=== PATIENT | female | born 1995 | race Caucasian/White ===

== ENCOUNTER 2020-10-17 10:48 | Emergency (ER) | payer OTHER, SELFPAY ==
[2020-10-17 10:51] VITALS: BP 119/73; PULSE 79; RESP 20; TEMP 36.4; O2SAT 100
--- NOTE | 2020-10-17 12:05 | ED.GENADULT ---
HPI - General Adult General Chief complaint: Unspecified <Haim Christopher PA-C - Last Filed: 10/17/20 12:09> Stated complaint: SORE THROAT <Haim Christopher PA-C - Last Filed: 10/17/20 12:09> Time Seen by Provider: 10/17/20 10:56 <Haim Christopher PA-C - Last Filed: 10/17/20 12:09> Source: patient <Haim Christopher PA-C - Last Filed: 10/17/20 12:09> Mode of arrival: ambulatory <Haim Christopher PA-C - Last Filed: 10/17/20 12:09> Limitations: no limitations <Haim Christopher PA-C - Last Filed: 10/17/20 12:09> History of Present Illness HPI narrative: Patient is a 25-year-old female who presents with over a month duration tonsillar hypertrophy and discomfort patient was seen at an urgent care treated for tonsillitis with minimal improvement patient denies other URI symptoms or sick contacts presents in no distress taking nothing for her symptoms worse with swallowing notes that she believes she has exudates on her tonsils as well <Haim Christopher PA-C - Last Filed: 10/17/20 12:09> Related Data Allergies/adverse reactions: Allergies Allergy/AdvReac Type Severity Reaction Status Date / Time No Known Allergies Allergy Verified 10/17/20 10:54 <Haim Christopher PA-C - Last Filed: 10/17/20 12:09> Review of Systems Review of Systems: All systems reviewed & are unremarkable except as noted in HPI and below <Haim Christopher PA-C - Last Filed: 10/17/20 12:09> [facility] Family History Family History: Family History (Updated 06/12/17 @ 14:15 by DOCTOR UNKNOWN) Mother Family history of thyroid disease, Onset Age: 41 Asthma, Onset Age: 41 Father Hypertension Patient's father is in good health <Haim Christopher PA-C - Last Filed: 10/17/20 12:09> Social History Social History: Social History Smoking status: Current every day smoker Alcohol intake: current Gender identity (if verbalized by the patient): Female <Haim Christopher PA-C - Last Filed: 10/17/20 12:09> Exam Narrative: Exam Narrative: GENERAL: Well-appearing, well-nourished, and in no acute distress. HEAD: Normocephalic, atraumatic. EYES: PERRLA and EOMI. ENT: Nares clear, no rhinorrhea or epistaxis. Mucous membranes moist. Oropharynx with tonsillar hypertrophy exudate or other lesions. Uvula midline no trismus or drooling NECK: Supple. No adenopathy or masses. CHEST: Clear to auscultation. No respiratory distress. No wheezes rales or rhonchi HEART: Regular rate and rhythm. No murmur heard. EXTREMITIES: Normal range of motion. No edema. SKIN: Warm, dry, no rash. NEURO: No focal deficits. Alert and oriented x3. Cranial nerves II through XII grossly intact PSYCH: Normal mood and affect. <CLOVIS Cooper Last Filed: 10/17/20 12:09> Course Course Emergency Course: Patient in the room negative strep will be referred to ENT given the chronicity of her symptoms patient will be treated symptomatically in the meantime afebrile nontoxic-appearing no distress felt appropriate for discharge home <CLOVIS Cooper Last Filed: 10/17/20 12:09> Vital Signs Vital signs: Vital Signs Temperature 97.5 F L 10/17/20 10:51 Pulse Rate 79 10/17/20 10:51 Respiratory Rate 20 10/17/20 10:51 Blood Pressure 119/73 10/17/20 10:51 Pulse Oximetry 100 10/17/20 10:51 Temperature 97.5 F L 10/17/20 10:51 Pulse Rate 79 10/17/20 10:51 Respiratory Rate 20 10/17/20 10:51 Blood Pressure 119/73 10/17/20 10:51 Pulse Oximetry 100 10/17/20 10:51 <CLOVIS Cooper Last Filed: 10/17/20 12:09> Vital Signs Temperature 97.5 F L 10/17/20 10:51 Pulse Rate 79 10/17/20 10:51 Respiratory Rate 20 10/17/20 10:51 Blood Pressure 119/73 10/17/20 10:51 Pulse Oximetry 100 12/19/20 10:51 Temperature 97.5 F L 10/17/20 10:51 Pulse Rate 79 10/17/20 10:51 Res
== END 2020-10-17 12:10 | disposition home or self-care (01) ==
PROVIDERS: Emergency Provider General Practice; PCP Internal Medicine
DX: J06.9 Acute upper respiratory infection, unspecified (principal)
CPT/HCPCS: 87880; 99283

== ENCOUNTER 2020-11-21 01:22 | Outpatient (CLI) | payer OTHER, SELFPAY ==
[2020-11-22 00:21] LABS: SARS-CoV-2 RNA PCR Negative
== END 2020-11-21 01:23 | disposition home or self-care (01) ==
LOC: ANHCOVIDDT 01:23
PROVIDERS: PCP Internal Medicine; Visit Provider Otolaryngology
DX: Z01.812 Encounter for preprocedural laboratory examination (principal); Z20.822 Contact with and (suspected) exposure to COVID-19
CPT/HCPCS: C9803; U0003; U0005

== ENCOUNTER 2020-11-24 01:05 | Day surgery (SDC) | payer OTHER, SELFPAY ==
[2020-11-18 09:54] VITALS: BMI 35.5
--- NOTE | 2020-11-19 09:56 | PM.HPGS ---
History of Present Illness History of Present Illness Consent: Risks, benefits, and alternatives have been discussed and questions answered. Patient agrees to proceed with procedure. Chief complaint: Hypertrophic Tonsils Narrative: Arpita Perez is a 25 year old female markedly enlarged tonsils recurring episodes of tonsillitis admitted for elective t Review of Systems Review of Systems: All systems reviewed & are unremarkable except as noted in HPI and below PMFSH Family History Family History (Updated 06/12/17 @ 14:15 by DOCTOR UNKNOWN) Mother Family history of thyroid disease, Onset Age: 41 Asthma, Onset Age: 41 Father Hypertension Patient's father is in good health Social History Social History Smoking status: Current every day smoker Tobacco type: cigarettes Additional smoking assessment comments: STATES SMOKES MAYBE 1 CIGARETTE/DAY X 5YRS Alcohol intake: current Drinks per week: 1 Substance use: never Substance use type: does not use Gender identity (if verbalized by the patient): Female Spiritual care concerns: No Meds Home Medications and Allergies Home Medications Medication Instructions Recorded Confirmed Type No Home Medications 11/18/20 11/18/20 History Allergies Allergy/AdvReac Type Severity Reaction Status Date / Time No Known Allergies Allergy Verified 11/18/20 09:54 Assessment and Plan Additional Plan plan is a tonsillectomy
--- NOTE | 2020-11-19 12:53 | PM.HPGS ---
History of Present Illness History of Present Illness Consent: Risks, benefits, and alternatives have been discussed and questions answered. Patient agrees to proceed with procedure. Chief complaint: Hypertrophic Tonsils Narrative: Arpita Perez is a 25 year old female with recurring episodes of tonsillitis treated vessels antibiotics unresponsive to medical m Review of Systems Review of Systems: All systems reviewed & are unremarkable except as noted in HPI and below PMFSH Family History Family History (Updated 06/12/17 @ 14:15 by DOCTOR UNKNOWN) Mother Family history of thyroid disease, Onset Age: 41 Asthma, Onset Age: 41 Father Hypertension Patient's father is in good health Social History Social History Smoking status: Current every day smoker Tobacco type: cigarettes Additional smoking assessment comments: STATES SMOKES MAYBE 1 CIGARETTE/DAY X 5YRS Alcohol intake: current Drinks per week: 1 Substance use: never Substance use type: does not use Gender identity (if verbalized by the patient): Female Spiritual care concerns: No Meds Home Medications and Allergies Home Medications Medication Instructions Recorded Confirmed Type No Home Medications 11/18/20 11/18/20 History Allergies Allergy/AdvReac Type Severity Reaction Status Date / Time No Known Allergies Allergy Verified 11/18/20 09:54 Assessment and Plan Additional Plan plan is tonsillectomy
--- NOTE | 2020-11-23 08:34 | P.PNAN_ITS ---
Anes - Initial Pre Proc Eval Procedure: Operation Date: 11/24/20 10:45 Proposed Procedures p Tonsillectomy - Rian Godinez MD Date/Time: 11/23/20 08:34 Surgeon: Rian Godinez MD Pre Op Diagnosis: Hypertrophic Tonsils Patient Data Age: 25 Gender: F Height: 1.6 m Weight: 91 kg Allergies Allergy/AdvReac Type Severity Reaction Status Date / Time No Known Allergies Allergy Verified 11/24/20 09:14 Home Medications Medication Instructions Recorded Confirmed Type No Home Medications 11/18/20 11/24/20 History Patient hx anesthesia problems: none Family hx anesthesia problems: none [facility] Past Medical History Medical History (Updated 11/23/20 @ 08:34 by Jerome Raines DO) Asthma Family History Family History (Updated 06/12/17 @ 14:15 by DOCTOR UNKNOWN) Mother Family history of thyroid disease, Onset Age: 41 Asthma, Onset Age: 41 Father Hypertension Patient's father is in good health Social History Social History Smoking status: Current every day smoker Tobacco type: cigarettes Additional smoking assessment comments: STATES SMOKES MAYBE 1 CIGARETTE/DAY X 5YRS Alcohol intake: current Drinks per week: 1 Substance use: never Substance use type: does not use Living arrangements: with family Gender identity (if verbalized by the patient): Female Spiritual care concerns: No Anes - Eval Final PreProcedure Day of Procedure 11/23/20 08:34 Patient weight: obese Heart: regular rate and rhythm Lungs: clear to auscultation and normal air movement Airway: Mallampati scale Neurological: alert and oriented Last oral intake: >/= 8 hours ASA classification: II Emergent: no Anesthetic plan: proceed Anesthesia type and monitoring: general ETT and standard monitoring Informed Consent: The patient's anesthetic plan and its attendant risks and benefits were discussed with the patient/family/POA. Questions were solicited and answers provided to the satisfaction of the patient/family/POA.
[2020-11-24] VITALS (8 sets, daily range): BP systolic 108–126; BP diastolic 48–76; PULSE 54–84; RESP 14–20; TEMP 36.8; O2SAT 96–100
--- NOTE | 2020-11-24 06:06 | WPDHPUPDATE1 ---
History and Physical Update Update Date/Time: 11/24/20 06:06 History and Physical has been reviewed, including an updated exam of the patient. There are NO changes in the patient's condition. Risks, benefits, and alternatives have been discussed and questions answered. Patient agrees to proceed with procedure.
[2020-11-24] MEDS: ACETAMINOPHEN 500 MG TABLET 1000 MG PO (09:12)
[2020-11-24] MEDS: LACTATED RINGERS 1,000 ML 30 ML IV CONT ×2 (09:20→10:38)
--- NOTE | 2020-11-24 10:08 | PM.PROC ---
Procedure Note - Detailed Date of procedure: 11/24/20 Pre-op diagnosis: Hypertrophic Tonsils Post-op diagnosis: same Procedure performed: Tonsillectomy Description of procedure: Patient was prepped and draped in usual fashion after induction of anesthesia. The McIvor mouth gag was inserted. The tonsils were removed dissection technique hemostasis was obtained electrocautery. The mouth was inspected for bleeding. When stablized patient was awaken and brought to the recovery room in good condition. Anesthesia: GLMA Surgeon: Rian Godinez MD Estimated blood loss (mL): 15 Drains: No Packing: No Pathology: none sent Complications: No immediate complications Condition: stable Disposition: PACU Findings: Chronic tonsillitis
[2020-11-24] MEDS: fentaNYL CITRATE INJ (*CRX) 100 MCG/2 ML VIAL 25 MCG IV PUSH ×2 (10:32→10:35)
== END 2020-11-24 12:25 | disposition home or self-care (01) ==
PROVIDERS: PCP Internal Medicine; Visit Provider Otolaryngology
PROC: (CPT 42826; principal; 2020-11-24 10:45)
DX: J35.01 Chronic tonsillitis (principal); F17.210 Nicotine dependence, cigarettes, uncomplicated; E66.9 Obesity, unspecified; Z68.36 Body mass index [BMI] 36.0-36.9, adult
CPT/HCPCS: 42826; 88302; 88304; A9270; J0330; J1100; J2250; J2405; J2704; J3010; J7120

== ENCOUNTER 2020-12-26 03:50 | Emergency (ER) | payer OTHER, SELFPAY ==
[2020-12-26 03:52] VITALS: BP 142/79; PULSE 76; RESP 16; TEMP 36.4; O2SAT 98
--- NOTE | 2020-12-26 04:03 | ED.GENADULT ---
HPI - General Adult General Chief complaint: Allergic Reaction Stated complaint: allergic reaction Time Seen by Provider: 12/26/20 03:51 Source: RN notes reviewed History of Present Illness HPI narrative: Patient presents emergency department from home for allergic reaction. Patient states that approximately 2330 this evening she ate prepackaged sushi states that following this she began to feel some swelling and itching in her feet that moved up her legs into her abdomen she also notes some mild feeling of warmth around her mouth she denies any sign of lips or tongue denies any shortness of breath denies any known previous allergies states she did take 125 mg Benadryl at home with no relief Related Data Allergies Allergy/AdvReac Type Severity Reaction Status Date / Time No Known Allergies Allergy Verified 12/26/20 03:57 Review of Systems Review of Systems: Narrative: Gen.: Denies fevers or chills ENT: Denies congestion Of the lips or tongue Respiratory: Denies shortness of breath or cough CV: Denies chest pain or palpitations GI: Denies abdominal pain nausea, emesis or diarrhea Musculoskeletal: Denies back pain or muscle pain Neuro: Denies numbness, tingling, weakness or focal weakness Skin: Denies rash Except as documented, all other systems reviewed and negative PMFSH Past Medical History Medical History Asthma Family History Family History (Updated 06/12/17 @ 14:15 by DOCTOR UNKNOWN) Mother Family history of thyroid disease, Onset Age: 41 Asthma, Onset Age: 41 Father Hypertension Patient's father is in good health Social History Social History Smoking status: Current some day smoker Tobacco type: cigarettes Additional smoking assessment comments: STATES SMOKES MAYBE 1 CIGARETTE/DAY X 5YRS Alcohol intake: current Drinks per week: 1 Substance use: never Substance use type: does not use Gender identity (if verbalized by the patient): Female Spiritual care concerns: No Exam Narrative: Exam Narrative: APPEARANCE: No acute distress, nontoxic, resting in bed EYES: EOMI HEENT: Normocephalic, atraumatic, OMM no swelling of lips or tongue airways patent RESPIRATORY: No respiratory distress Clear to auscultation bilaterally with no rhonchi wheezing or rales. CARDIOVASCULAR: Regular rate and rhythm without murmurs rubs or gallops. ABDOMINAL: Soft, nontender, nondistended, no rebound or guarding MUSCULOSKELETAl: Moves all extremities. No clubbing, cyanosis or edema. NEURO: Awake and alert. Following commands, speech normal, no focal deficits SKIN:: Warm, dry. Hives noted on bilateral lower extremity and abdomen PSYCHIATRIC: Normal affect/mood, Course Course Emergency Course: Urticaria has resolved on medication patient states she is feeling much better Discussed with patient results of workup and diagnosis. Discussed need for follow-up with primary care, proper use of medication, and reasons to return to the emergency department. Patient understands and agrees to current treatment plan Vital Signs Vital signs: Vital Signs Temperature 97.6 F 12/26/20 03:52 Pulse Rate 76 12/26/20 03:52 Respiratory Rate 16 12/26/20 03:52 Blood Pressure 142/79 H 12/26/20 03:52 Pulse Oximetry 98 12/26/20 03:52 Temperature 97.6 F 12/26/20 03:52 Pulse Rate 76 12/26/20 03:52 Respiratory Rate 16 12/26/20 03:52 Blood Pressure 142/79 H 12/26/20 03:52 Pulse Oximetry 98 12/26/20 03:52 Medical Decision Making Vital Signs Vital Signs: Vital Signs Temperature 97.6 F 12/26/20 03:52 Pulse Rate 76 12/26/20 03:52 Respiratory Rate 16 12/26/20 03:52 Blood Pressure 142/79 H 12/26/20 03:52 Pulse Oximetry 98 12/26/20 03:52 Temperature 97.6 F 12/26/20 03:52 Pulse Rate 76 12/26/20 03:52 Respiratory Rate 16 12/26/20 03:52 Blood Pressure
[2020-12-26] MEDS: diphenhydrAMINE HCl INJ 50 MG/ML VIAL 25 MG IV PUSH (04:05)
[2020-12-26] MEDS: FAMOTIDINE 20 MG/2 ML VIAL IV PUSH (04:05)
[2020-12-26] MEDS: methylPREDNISolone SOD SUCC 125 MG VIAL IV PUSH (04:05)
--- NOTE | 2020-12-26 05:07 | PC.NURSE ---
Pts rash improved and swelling to her feet has decreased. Pt feels much better and states she is ready to go home.
[2020-12-26 05:20] VITALS: BP 142/79; PULSE 72; RESP 19; O2SAT 100
== END 2020-12-26 05:27 | disposition home or self-care (01) ==
PROVIDERS: Emergency Provider Emergency Medicine; PCP Internal Medicine
DX: T78.1XXA Other adverse food reactions, not elsewhere classified, initial encounter (principal); L29.9 Pruritus, unspecified; L50.0 Allergic urticaria; J45.909 Unspecified asthma, uncomplicated; F17.210 Nicotine dependence, cigarettes, uncomplicated
CPT/HCPCS: 96374; 96375; 99284; J1200; J2930

== ENCOUNTER 2021-01-09 05:10 | Emergency (ER) | payer OTHER, SELFPAY ==
[2021-01-09 05:14] VITALS: BP 165/91; PULSE 101; RESP 16; TEMP 36.4; O2SAT 99
--- NOTE | 2021-01-09 05:21 | ED.GENADULT ---
HPI - General Adult General Chief complaint: Allergic Reaction Stated complaint: allergic reaction Time Seen by Provider: 01/09/21 05:13 History of Present Illness HPI narrative: Patient is a 25-year-old female who presents to the emergency department with chief complaint of allergic reaction. Patient states that week or so ago she was seen in the emergency department and had allergic reaction to what she thought was shellfish the patient at that time and also had a some another juice combination. The patient states that she has been avoiding shellfish and then tonight had the same drink combination and started having itching over her entire body and hives over her body. Patient denies angioedema denies stridor denies difficulty breathing. Related Data Allergies Allergy/AdvReac Type Severity Reaction Status Date / Time No Known Allergies Allergy Verified 12/26/20 03:57 Review of Systems Review of Systems: Narrative: A 10 system review of systems was completed on the patient and is negative except for what is stated in the HPI. Nursing and ancillary documentation was reviewed. [facility] Past Medical History Medical History Asthma Family History Family History Mother Family history of thyroid disease, Onset Age: 41 Asthma, Onset Age: 41 Father Hypertension Patient's father is in good health Social History Social History Smoking status: Current some day smoker Tobacco type: cigarettes Additional smoking assessment comments: STATES SMOKES MAYBE 1 CIGARETTE/DAY X 5YRS Alcohol intake: current Drinks per week: 1 Substance use: never Substance use type: does not use Gender identity (if verbalized by the patient): Female Spiritual care concerns: No Exam Narrative: Exam Narrative: GENERAL: Well-appearing, well-nourished, and in no acute distress. HEAD: Normocephalic, atraumatic. EYES: PERRLA and EOMI. ENT: Nares clear, no rhinorrhea or epistaxis. Mucous membranes moist. NECK: Supple. CHEST: Clear to auscultation. No respiratory distress. HEART: Regular rate and rhythm. No murmur heard. Normal peripheral pulses. ABDOMEN: Soft, nontender, nondistended, normal active bowel sounds. EXTREMITIES: Normal range of motion. No edema. SKIN: Warm, dry, generalized urticaria noted. NEURO: No focal deficits. Alert and oriented x3. PSYCH: Normal mood and affect. Course Vital Signs Vital signs: Vital Signs Temperature 36.4 C L 01/09/21 05:14 Pulse Rate 101 H 01/09/21 05:14 Respiratory Rate 16 01/09/21 05:14 Blood Pressure 165/91 H 01/09/21 05:14 Pulse Oximetry 99 01/09/21 05:14 Temperature 36.4 C L 01/09/21 05:14 Pulse Rate 82 01/09/21 06:02 Respiratory Rate 16 01/09/21 06:02 Blood Pressure 131/76 01/09/21 06:02 Pulse Oximetry 98 01/09/21 06:02 Medical Decision Making Vital Signs Vital Signs: Vital Signs Temperature 36.4 C L 01/09/21 05:14 Pulse Rate 101 H 01/09/21 05:14 Respiratory Rate 16 01/09/21 05:14 Blood Pressure 165/91 H 01/09/21 05:14 Pulse Oximetry 99 01/09/21 05:14 Temperature 36.4 C L 01/09/21 05:14 Pulse Rate 82 01/09/21 06:02 Respiratory Rate 16 01/09/21 06:02 Blood Pressure 131/76 01/09/21 06:02 Pulse Oximetry 98 01/09/21 06:02 Discharge Plan Discharge Clinical Impression: Allergic reaction Patient Disposition: Home, Self-Care Condition: Stable Instructions: Antibiotic Form, Urticaria (ED), Food Allergy (ED) Prescriptions: New prednisone 20 mg tablet 40 mg PO DAILY 5 Days Qty: 10 RF: 0 No Action prednisone 20 mg tablet 20 mg PO BID Qty: 8 RF: 0 famotidine [Pepcid] 20 mg tablet 20 mg PO DAILY Qty: 7 RF: 0 loratadine 10 mg tablet 10 mg PO DAILY Qty: 7 RF: 0 acetaminophen
[2021-01-09] MEDS: FAMOTIDINE 20 MG/2 ML VIAL IV PUSH (05:25)
[2021-01-09] MEDS: diphenhydrAMINE HCl INJ 50 MG/ML VIAL 25 MG IV PUSH (05:25)
[2021-01-09] MEDS: methylPREDNISolone SOD SUCC 125 MG VIAL IV PUSH (05:25)
[2021-01-09 06:02] VITALS: BP 131/76; PULSE 82; RESP 16; O2SAT 98
== END 2021-01-09 06:21 | disposition home or self-care (01) ==
LOC: ANHED 05:46
PROVIDERS: Emergency Provider Emergency Medicine; PCP Internal Medicine
DX: T78.40XA Allergy, unspecified, initial encounter (principal); J45.909 Unspecified asthma, uncomplicated; F17.210 Nicotine dependence, cigarettes, uncomplicated
CPT/HCPCS: 96374; 96375; 99284; J1200; J2930

== ENCOUNTER 2021-02-05 18:09 | Emergency (ER) | payer OTHER, SELFPAY ==
--- NOTE | ~2021-02-05 | CT_ITS ---
EXAMINATION: CT abdomen pelvis w con INDICATION: Bilateral lower abdominal TECHNIQUE: Computed tomographic images of the abdomen and pelvis were obtained after the administrati on of 100 cc of Omnipaque 350 intravenous contrast. The dose-length product (DLP) was 847.30 mGy-cm. Automated exposure control and iterative reconstruction technique were employed. COMPARISON: None available FINDINGS: The lung bases are clear. The heart size is normal. The liver, spleen, pancreas, gallbladde r, and adrenal glands are normal. The kidneys are unremarkable. No pathologically enlarged abdominal or pelvic lymph nodes are identified. There is no free intraperitoneal gas or evidence of bowel obstr uction. There is inflammatory change in the pelvis near the distal sigmoid colon. Small amount of michael e fluid is seen in the pelvis. There is an enhancing corpus luteum of the left ovary. An IUD is in th e uterus in expected position. The visualized osseous structures are unremarkable. IMPRESSION: 1. Minimal inflammatory change of the pelvis near the sigmoid colon which could reflect mild colitis, diverticulitis, or epiploic appendagitis. Reviewed, dictated and finalized at location A.
[2021-02-05 18:11] VITALS: BP 142/89; PULSE 78; RESP 18; TEMP 36.2; O2SAT 100
[2021-02-05 18:38] LABS: Add Urine Microscopic? NO; Appearance Urine Clear (Clear); Bilirubin Urine Negative (Negative); Blood Urine Negative (Negative); Color Urine Colorless (Yellow); Glucose Urine UA Negative (Negative); Ketones Urine Negative (Negative); Leukocyte Esterase Ur Negative LEU/UL (Negative); Nitrate Urine Negative (Negative); Protein Urine Negative (Negative); Urobilinogen Urine Negative mg/dL (<2.0)
[2021-02-05 18:42] LABS: Specific Grav Ur 1.003 (1.001-1.035)
[2021-02-05 20:22] VITALS: BP 117/73; PULSE 66; RESP 14; TEMP 36.8; O2SAT 100
--- NOTE | 2021-02-05 20:47 | ED.GENADULT ---
HPI - General Adult General Chief complaint: Abdominal Pain Stated complaint: low abd pain Time Seen by Provider: 02/05/21 20:45 Source: RN notes reviewed History of Present Illness HPI narrative: Patient presents to emergency room from home for abdominal pain. Patient states pain is located bilateral lower abdomen and radiates into the lower back. Patient states pain began this morning is progressively worsened associated with nausea. Patient did take Tylenol at home with minimal relief. She denies any fevers or chills chest pain shortness of breath diarrhea vaginal bleeding vaginal discharge or any other symptoms. States she does have an IUD in place Related Data Allergies Allergy/AdvReac Type Severity Reaction Status Date / Time No Known Allergies Allergy Verified 12/26/20 03:57 Review of Systems Review of Systems: Narrative: Gen.: Denies fevers or chills ENT: Denies congestion Respiratory: Denies shortness of breath or cough CV: Denies chest pain or palpitations GI: See HPI denies burning, urgency, frequency or hematuria Musculoskeletal: Denies back pain or muscle pain Neuro: Denies numbness, tingling, weakness or focal weakness Skin: Denies rash Except as documented, all other systems reviewed and negative [facility] Past Medical History Medical History Asthma Family History Family History Mother Family history of thyroid disease, Onset Age: 41 Asthma, Onset Age: 41 Father Hypertension Patient's father is in good health Social History Social History Smoking status: Current some day smoker Tobacco type: cigarettes Additional smoking assessment comments: STATES SMOKES MAYBE 1 CIGARETTE/DAY X 5YRS Alcohol intake: current Drinks per week: 1 Substance use: never Substance use type: does not use Gender identity (if verbalized by the patient): Female Spiritual care concerns: No Exam Narrative: Exam Narrative: APPEARANCE: No acute distress, nontoxic, resting in bed HEENT: Normocephalic, atraumatic, OMM RESPIRATORY: No respiratory distress, clear to auscultation bilaterally with no rhonchi wheezing or rales CARDIOVASCULAR: RRR s murmur ABDOMINAL: Soft nondistended tender palpation right lower quadrant left lower quadrant no tenderness right upper quadrant left upper quadrant no rebound or guarding MUSCULOSKELETAl: Moves all extremities. No clubbing, cyanosis or edema. NEURO: Awake and alert. Following commands, speech normal, no focal deficits SKIN:: Warm, dry. Normal Color PSYCHIATRIC: Normal affect/mood Course Course Emergency Course: Patient states that they are feeling much better at this time. States abdominal pain has improved. Repeat abdominal exam shows the patient's abdomen to be soft with no surgical abdomen present discussed with patient results of workup and diagnosis. Discussed need for follow-up with primary care physician, reasons to return to the emergency department in proper use of medication. Patient understands and agrees to current treatment plan. I discussed with patient CT results and possible diagnosis discussed treatment plan in agreement at this time Vital Signs Vital signs: Vital Signs Temperature 97.1 F L 02/05/21 18:11 Pulse Rate 78 02/05/21 18:11 Respiratory Rate 18 02/05/21 18:11 Blood Pressure 142/89 H 02/05/21 18:11 Pulse Oximetry 100 02/05/21 18:11 Temperature 98.3 F 02/05/21 20:22 Pulse Rate 75 02/05/21 21:12 Respiratory Rate 16 02/05/21 21:12 Blood Pressure 122/71 02/05/21 21:12 Pulse Oximetry 100 02/05/21 21:12 Medical Decision Making MDM Narrative Medical decision making narrative: Patient's abdomen is soft without significant pain or signs of surgical abdomen on serial exams. Lab and x-ray evaluations are reviewed and patient is felt
[2021-02-05 21:01] LABS: Basophils Percent Auto 0.4 % (0.2-1.2); Eosinophils Absolute Auto 0.1 K/mm3 (0-0.3); Eosinophils Percent Auto 1.1 % (0-4.4); Hematocrit 40.3 % (37.0-47.0); Hemoglobin 13.6 g/dL (12.0-15.0); Immature Granulocyte Absolute 0.01 K/mm3 (0.00-0.031); Immature Granulocyte Percent A 0.1 % (0-0.5); Lymphocytes Absolute Auto 2.19 K/mm3 (0.9-3.2); Lymphocytes Percent Auto 27.2 % (18.3-44.2); Mean Corpuscular HGB Conc 33.7 g/dl (32-36); Mean Corpuscular Hemoglobin 30.5 pg (26-34); Mean Corpuscular Volume 90.4 fl (80-100); Mean Platelet Volume 9.3 fl (7.4-10.4); Monocytes Absolute Auto 0.7 K/mm3 (0.1-0.6); Monocytes Percent Auto 8.1 % (2.6-8.5); Neutrophils Absolute Auto 5.1 K/mm3 (1.3-6.7); Neutrophils Percent Auto 63.1 % (45.5-73.1); Platelet Count Result 199 k/mm3 (150-375); Red Blood Count 4.46 M/mm3 (4.2-5.4); Red Cell Distribution Width 12.8 % (11.5-14.5)
[2021-02-05] MEDS: SODIUM CHLORIDE 0.9% IV 1,000 ML 999 ML IV CONT (21:02)
[2021-02-05] MEDS: KETOROLAC 30 MG/ML VIAL (*BKC) IV PUSH (21:03)
[2021-02-05] MEDS: ONDANSETRON INJ 4 MG/2 ML VIAL IV PUSH (21:03)
[2021-02-05 21:12] VITALS: BP 122/71; PULSE 75; RESP 16; O2SAT 100
[2021-02-05 21:20] LABS: Alanine Aminotransferase 18 U/L (4-35); Albumin Level 4.3 g/dL (3.5-5.1); Alkaline Phosphatase 88 U/L (38-126); Anion Gap 5 mmol/L (8-16); Aspartate Amino Transferase 21 U/L (14-36); Bilirubin,Total 0.3 mg/dL (0.2-1.3); Blood Urea Nitrogen 12 mg/dL (7-17); Calcium 9.4 mg/dL (8.4-10.2); Carbon Dioxide 31 mmol/L (22-30); Chloride 105 mmol/L (98-107); Estimated CRCL calculation 89 ml/min; Estimated Glomerular Filt Rate > 60; Glucose 86 mg/dL (65-105); Lipase 59 U/L (23-300); Potassium 3.9 mmol/L (3.4-5.0); Sodium 141 mmol/L (137-145)
[2021-02-05] MEDS: AMOXICILLIN/CLAVULANATE K 875-125 MG TAB 1 TABLET PO (23:25)
[2021-02-05 23:34] VITALS: BP 118/70; PULSE 70; RESP 18; O2SAT 98
== END 2021-02-05 23:36 | disposition home or self-care (01) ==
PROVIDERS: Emergency Medicine; Emergency Provider Emergency Medicine; PCP Internal Medicine
DX: K57.92 Diverticulitis of intestine, part unspecified, without perforation or abscess without bleeding (principal); J45.909 Unspecified asthma, uncomplicated; F17.210 Nicotine dependence, cigarettes, uncomplicated
CPT/HCPCS: 36415; 74177; 80053; 81003; 81025; 83690; 85025; 96361; 96374; 96375; 99284; A9270; J1885; J2405; J7030; Q9967

== ENCOUNTER 2022-03-08 10:29 | Outpatient (CLI) | payer OTHER, SELFPAY ==
--- NOTE | 2022-03-08 11:15 | NEURO_ITS ---
Impression: # Complains of numbness of right hand. # Evolving right Carpal Tunnel Syndrome. # No ulnar neuropathy. # Normal needle/EMG exam. Nerve Conduction Studies Anti Sensory Summary Table Stim Site NR Peak (ms) P-T Amp (?V) Site1 Site2 Delta-P (ms) Dist (cm) Mian (m/s) Right Median Anti Sensory (2-3nd Digit) Wrist 4.1 62.8 Wrist 2-3nd Digit 4.1 14.0 34 Wrist 4.1 36.6 Wrist 2-3nd Digit 4.1 14.0 34 Right Radial Anti Sensory (Base 1st Digit) Wrist 2.3 41.1 Wrist Base 1st Digit 2.3 0.0 Right Ulnar Anti Sensory (5th Digit) Wrist 2.6 57.4 Wrist 5th Digit 2.6 14.0 54 Motor Summary Table Stim Site NR Onset (ms) O-P Amp (mV) Site1 Site2 Delta-0 (ms) Dist (cm) Mian (m/s) Right Median Motor (Abd Poll Brev) Wrist 3.5 5.8 Elbow Wrist 4.9 30.0 61 Elbow 8.4 5.1 Right Ulnar Motor (Abd Dig Minimi) Wrist 2.3 6.9 A Elbow Wrist 4.4 28.0 64 A Elbow 6.7 6.3 F Wave Studies NR F-Lat (ms) L-R F-Lat (ms) Right Median (Mrkrs) (Abd Poll Brev) 28.30 Right Ulnar (Mrkrs) (Abd Dig Min) 27.15 EMG Side Muscle Nerve Root Ins Act Fibs Amp Dur Recrt Comment Right 1stDorInt Ulnar C8-T1 Nml Nml Nml Nml Nml Right Ext Indicis Radial (Post Int) C7-8 Nml Nml Nml Nml Nml Right Ext Digitorum Radial (Post Int) C7-8 Nml Nml Nml Nml Nml Right BrachioRad Radial C5-6 Nml Nml Nml Nml Nml Right PronatorTeres Median C6-7 Nml Nml Nml Nml Nml Right Abd Poll Brev Median C8-T1 Nml Nml Nml Nml Nml MTDD
== END 2022-03-08 10:30 | disposition home or self-care (01) ==
LOC: ANHNEURO 10:31
PROVIDERS: PCP Internal Medicine; Visit Provider Nurse Practitioner
DX: R20.0 Anesthesia of skin (principal); G56.01 Carpal tunnel syndrome, right upper limb; R20.2 Paresthesia of skin
CPT/HCPCS: 95886; 95909

== ENCOUNTER 2022-05-23 10:10 | Emergency (ER) | payer OTHER, SELFPAY ==
--- NOTE | ~2022-05-23 | XR_ITS ---
EXAMINATION: XR chest 1V portable 05/23/2022 10:55 INDICATION: Edema. Dyspnea. PROCEDURE: AP portable chest COMPARISON: No prior studies for comparison. FINDINGS: The lungs are clear. The cardiomediastinal silhouette is within normal limits. There are no pleural effusions. There is no pneumothorax suspected. IMPRESSION: 1: NO ACUTE CARDIOPULMONARY DISEASE. Reviewed, dictated and finalized at location A.
--- NOTE | ~2022-05-23 | CT_ITS ---
EXAMINATION: CT brain wo con INDICATION: Headache and dizziness COMPARISON: None TECHNIQUE: Standard unenhanced head CT. The dose-length product (DLP) was 605.33 mGy-cm. The mA was a djusted according to patient size. Iterative reconstruction technique was employed. FINDINGS: There is no intracranial hemorrhage, acute infarction, or abnormal mass lesion. The ventric les are normal. There is no abnormal mass effect or midline shift. The ortiz-white matter differentiat ion is normal. The basal cisterns are patent. The orbits are normal. The paranasal sinuses, mastoids and calvarium are normal. IMPRESSION: 1. No acute intracranial abnormality. Reviewed, dictated and finalized at location B.
[2022-05-23 10:20] VITALS: BP 141/77; PULSE 66; RESP 16; TEMP 36.8; O2SAT 100
--- NOTE | 2022-05-23 10:31 | ED.GENADULT ---
HPI - General Adult General Chief complaint: Recheck/Abnormal Lab/Rx Stated complaint: Elevated Blood Pressure at home Time Seen by Provider: 05/23/22 10:18 Source: RN notes reviewed History of Present Illness HPI narrative: Patient presents emergency department from home for hypertension. Patient states that starting 3 days ago she began to have generalized swelling throughout her body and her bilateral arms and legs states that with this she has been having intermittent dizziness as well as a headache states that work states she taken her blood pressure and blood pressure been elevated and she presented to the emergency department for further evaluation. She denies any chest pain shortness of breath abdominal pain nausea vomiting. She denies any previous history of hypertension except for hypertension with her previous but denies any at this time. Related Data Home Medications Medication Instructions Recorded Confirmed omeprazole 20 mg capsule,delayed 20 mg PO DAILY PRN Acid Reflux 01/25/22 02/21/22 release Allergies Allergy/AdvReac Type Severity Reaction Status Date / Time No Known Allergies Allergy Verified 05/23/22 11:14 Review of Systems Review of Systems: Gen.: Denies fevers or chills Eyes: Denies eye pain or visual change ENT: Denies congestion Respiratory: Denies shortness of breath or cough CV: Denies chest pain or palpitations GI: Denies abdominal pain nausea, emesis or diarrhea Musculoskeletal: Denies back pain or muscle pain reports edema Neuro: Reports headache and dizziness denies weakness of the extremities Skin: Denies rash Except as documented, all other systems reviewed and negative [facility] Past Medical History Medical History Asthma Depression Tobacco abuse Surgical History Surgical History H/O section 2017 H/O excision of mass excision right upper thigh lipoma and skin tag -07/02/2021 History of tonsillectomy 2020 Family History Family History Mother Family history of thyroid disease, Onset Age: 41 Asthma, Onset Age: 41 Father Hypertension Patient's father is in good health Sibling Asthma Grandparent Asthma Breast cancer Lung cancer Brain cancer Social History Social History (Updated 05/23/22 @ 11:21 by Niall C. Rew, DO) Tobacco type: e-cigarettes/vaping Alcohol intake: former Drinks per week: 1 Substance use: current Substance use type: marijuana Gender identity (if verbalized by the patient): Female Spiritual care concerns: No Exam Narrative: APPEARANCE: No acute distress, nontoxic, resting in bed EYES: EOMI, PERRL HEENT: Normocephalic, atraumatic, OMM RESPIRATORY: No respiratory distress Clear to auscultation bilaterally with no rhonchi wheezing or rales. CARDIOVASCULAR: Regular rate and rhythm without murmurs rubs or gallops. ABDOMINAL: Soft, nontender, nondistended, no rebound or guarding MUSCULOSKELETAl: Moves all extremities. No clubbing, cyanosis 2+ edema the bilateral lower extremities bilateral calves soft and nontender to palpation bilateral dorsalis pedis pulse 2+ NEURO: Awake and alert x 4. Following commands, speech normal, no focal deficits, muscle strength 5 out of 5 bilateral upper and lower extremities SKIN:: Warm, dry. No rashes lesions or abrasions PSYCHIATRIC: Normal affect/mood, Course Course Emergency Course: Patient's blood pressures does remain within normal range in the emergency department she states she is scheduled for follow-up with her PCP in 2 days discussed with patient wearing compression stockings with follow-up as an outpatient Discussed with patient results of workup and diagnosis. Discussed need for follow-up with primary care, proper use of medication, and reasons to return to the emergency department
--- NOTE | 2022-05-23 10:42 | ECG_ITS ---
Measurements Intervals [place] Rate: 57 P: 23 WV: 136 QRS: 6 QRSD: 100 T: -16 QT: 384 QTc: 374 Interpretive Statements SINUS BRADYCARDIA WITH SINUS ARRHYTHMIA VOLTAGE CRITERIA FOR LVH MINIMAL Q WAVES- HIGH LATERAL LEADS BORDERLINE ST-T WAVE ABNORMALITY- ANT/INF LEADS BORDERLINE ECG Electronically Signed On 05-23-2022 12:19:54 CDT by Uvaldo Rodgers D.O.
[2022-05-23 11:11] VITALS: BP 130/73; PULSE 60; RESP 16; O2SAT 100
[2022-05-23 11:19] LABS: Basophils Absolute Auto 0.1 K/mm3 (0.0-0.1); Eosinophils Absolute Auto 0.1 K/mm3 (0-0.3); Hematocrit 38.4 % (37.0-47.0); Hemoglobin 12.5 g/dL (12.0-15.0); Immature Granulocyte Absolute 0.01 K/mm3 (0.00-0.031); Immature Granulocyte Percent A 0.1 % (0-0.5); Lymphocytes Absolute Auto 2.39 K/mm3 (0.9-3.2); Lymphocytes Percent Auto 33.6 % (18.3-44.2); Mean Corpuscular HGB Conc 32.6 g/dl (32-36); Mean Corpuscular Hemoglobin 29.7 pg (26-34); Mean Corpuscular Volume 91.2 fl (80-100); Mean Platelet Volume 10.4 fl (7.4-10.4); Monocytes Absolute Auto 0.6 K/mm3 (0.1-0.6); Monocytes Percent Auto 8.2 % (2.6-8.5); Neutrophils Absolute Auto 3.9 K/mm3 (1.3-6.7); Neutrophils Percent Auto 55.1 % (45.5-73.1); Platelet Count Result 224 k/mm3 (150-375); Red Blood Count 4.21 M/mm3 (4.2-5.4); White Blood Count 7.1 K/mm3 (4.5-10.0)
[2022-05-23 11:24] LABS: Alanine Aminotransferase 20 U/L (6-35); Albumin Level 3.8 g/dL (3.5-5.1); Alkaline Phosphatase 89 U/L (38-126); Anion Gap 9 mmol/L (8-16); Aspartate Amino Transferase 18 U/L (14-36); Bilirubin,Total 0.5 mg/dL (0.2-1.3); Blood Urea Nitrogen 9 mg/dL (7-17); Calcium 8.5 mg/dL (8.4-10.2); Carbon Dioxide 27 mmol/L (22-30); Chloride 106 mmol/L (98-107); Estimated CRCL calculation 109 ml/min; Estimated Glomerular Filt Rate > 60; Glucose 81 mg/dL (65-110); Potassium 3.6 mmol/L (3.4-5.0); Sodium 142 mmol/L (137-145)
[2022-05-23 11:26] LABS: Appearance Urine Clear (Clear); Bilirubin Urine Negative (Negative); Blood Urine Negative (Negative); Color Urine Yellow (Yellow); Glucose Urine UA Negative (Negative); Ketones Urine Negative (Negative); Leukocyte Esterase Ur Negative LEU/UL (Negative); Nitrate Urine Negative (Negative); Protein Urine Negative (Negative); Urobilinogen Urine 0.2 mg/dL (<2.0); pH Urine 6.5 (5.0-9.0)
[2022-05-23 11:36] LABS: NT Pro B Type Natriuretic Pept 277 pg/mL (5-100); Troponin I < 0.012 ng/mL (0.000-0.034)
[2022-05-23 11:39] LABS: Add Urine Microscopic? NO
--- NOTE | 2022-05-23 11:45 | PC.NURSE ---
pt taken to CT at this time
[2022-05-23 14:01] VITALS: BP 113/74; PULSE 52; RESP 20; O2SAT 94
== END 2022-05-23 14:05 | disposition home or self-care (01) ==
PROVIDERS: Emergency Provider Emergency Medicine; PCP Internal Medicine
DX: R42 Dizziness and giddiness (principal); R60.9 Edema, unspecified; J45.909 Unspecified asthma, uncomplicated; F17.290 Nicotine dependence, other tobacco product, uncomplicated; R00.1 Bradycardia, unspecified; R94.31 Abnormal electrocardiogram [ECG] [EKG]
CPT/HCPCS: 36415; 70450; 71045; 80053; 81003; 81025; 83880; 84484; 85025; 85610; 85730; 93005; 99284

== ENCOUNTER 2022-06-07 14:31 | Outpatient (CLI) | payer OTHER, SELFPAY ==
--- NOTE | 2022-06-07 14:39 | ECHO_ITS ---
Patient Info Name: Arpita Perez Age: 27 years : 1995 Gender: Female Ht: 63 in Wt: 195 lbs BSA: 2.02 m2 HR: 56 bpm BP: 121 / 90 mmHg Technical Quality: Good Exam Date: 06/07/2022 2:53 PM Exam Location: [facility] Pulmonary Patient Status: Outpatient Admit Date: 06/07/2022 Staff Ordering Physician: Anila Jones NP Billing And Insurance Coordinator: Serina Bird RDCS Attending Provider: Anila Jones NP Referring Physician: Karen CHANEL; Exam Type: CA echo doppler color flow Study Info Indications R60.9 - Edema, unspecified Complete two-dimensional, color flow and Doppler transthoracic echocardiogram is performed. Summary 1. Complete two-dimensional, color flow and Doppler transthoracic echocardiogram is performed. 2. Left ventricular chamber dimension is normal. 3. Left ventricular systolic function is normal, estimated at 60-65%. 4. The left ventricular diastolic function is normal. 5. E/e' 7 is not elevated. 6. Global longitudinal strain is normal at -23.9%. 7. Left atrial chamber dimension is mildly enlarged. 8. No pulmonary hypertension, estimated pulmonary arterial systolic pressure is 28 mmHg. 9. There is trace pulmonic regurgitation. Left Ventricle E/e' 7 is not elevated. Global longitudinal strain is normal at -23.9%. Left ventricular chamber dimension is normal. Left ventricular systolic function is normal, estimated at 60-65%. The left ventricular diastolic function is normal. Right Ventricle Right ventricular systolic function is normal and with normal TAPSE 2.4 cm. Right ventricular chamber dimension is normal. Left Atria Left atrial chamber dimension is mildly enlarged. Right Atria Right atrial chamber dimension is normal. Aortic Valve The aortic valve is trileaflet. There is no aortic valve stenosis. There is no aortic valve regurgitation. Pulmonic Valve There is trace pulmonic regurgitation. Mitral Valve There is no mitral valve stenosis. There is no mitral valve regurgitation. Tricuspid Valve There is no tricuspid valve regurgitation. No pulmonary hypertension, estimated pulmonary arterial systolic pressure is 28 mmHg. Pericardium/Pleural There is no pericardial effusion. Inferior Vena Cava Normal inferior vena cava with >50% collapse upon inspiration consistent with normal right atrial pressure, 5 mmHg. Aorta The aortic root size at the sinus of Valsalva is normal. Left Ventricular Outflow Tract Name Value Normal LVOT 2D LVOT Diameter 2.0 cm LVOT Doppler LVOT Peak Gradient 5 mmHg LVOT Mean Gradient 2 mmHg LVOT VTI 21 cm LVOT VTI/AV VTI Ratio 1.0 LVOT Stroke Volume 67 ml LVOT CO 4.0 l/min LVOT CI 2.0 l/min/m2 Pulmonic Valve Name Value Normal JARED Engle
== END 2022-06-07 14:32 | disposition home or self-care (01) ==
LOC: ANHCARD 14:33
PROVIDERS: PCP Internal Medicine; Visit Provider Nurse Practitioner
DX: R60.9 Edema, unspecified (principal); I51.7 Cardiomegaly
CPT/HCPCS: 93306

== ENCOUNTER 2022-07-07 00:49 | Day surgery (SDC) | payer OTHER, SELFPAY ==
[2022-06-28 08:25] VITALS: BMI 35.1
--- NOTE | 2022-06-28 08:34 | PC.NURSE ---
Report to the Outpatient Waiting Room, entrance under the green pavilion located off [facility], at time 1200__ on date _07/07/22_. OR Time: . - You and your visitor will be asked to self-screen and do not enter if you have any COVID symptoms. - Only one visitor and NO children visitors are allowed at this time. - The patient visitor is requested to leave or wait in car when not with patient due to restrictions. - A mask is required within the hospital. Patients may have clear liquids (water, carbonated beverages, clear teas, apple juice) until 3 hours prior to surgery with a maximum of 20 ounces. - No food from midnight until time of surgery - Infants may have breast milk until 4 hours before surgery, formula 6 hours prior to surgery. - Children will be allowed to drink immediately following surgery. If applicable, please bring a bottle or sippy cup to assist with drinking. Juice, water, soda, and popsicles are readily available. For infants on formula, please bring formula the day of surgery. Pacifiers are allowed. Take the following medications with a SIP of water the morning of surgery: __ALL MORNING MEDICATION Medications to discontinue per physician NONE Date to take last dose Please no make-up, nail urdu, hairspray, perfume, deodorant, or body powder the day of surgery. No jewelry (including any body piercings) or valuables the day of surgery, leave them at home. Please take a shower or bath the night before, or the morning of, surgery with an antibacterial soap. Wear comfortable, loose fitting clothing. Children are encouraged to wear pajamas. - Jewelry must be removed prior to entering the operating room. Rings and piercings that are not removed may be cut off. - The hospital will not accept responsibility for valuables. - Please leave all valuables, including medications, at home the day of surgery. If you are going home after surgery, a licensed yard truck driver must drive you home. - NO public transportation without another adult. - We recommend that an adult stay with you for 24 hours following discharge. - We also recommend that you do not drive, make important decision, drink alcoholic beverages, or take any drugs that were not prescribed by your health care provider for at least 24 hours after your discharge time. For Pediatric surgeries, we recommend two adults accompany the child home (only one inside the building at this time). Follow any additional instructions given to you from your surgeon. If you or anyone in your household have experienced Covid symptoms in the past week, please notify your surgeon or the nurse liaison at the phone number below for possible testing. Telephone instructions given to _PATIENT_and asked if any additional questions and then verbalized understanding. Patient advised to call surgeon office or pre surgery nurse liaison [phone] if any additional questions.
[2022-07-07 11:37] VITALS: BP 135/79; PULSE 65; RESP 18; TEMP 36.7; O2SAT 100
[2022-07-07] MEDS: LIDO 1%/EPINEPHRINE 1:100,000 50 ML VIAL INFILTRATE (13:47)
[2022-07-07 13:50] VITALS: BP 126/71; PULSE 55; RESP 18; O2SAT 100
[2022-07-07 14:00] VITALS: BP 117/66; PULSE 61; RESP 18; O2SAT 100
[2022-07-07 14:10] VITALS: BP 111/67; PULSE 63; RESP 18; O2SAT 100
[2022-07-07] MEDS: BACITRACIN OINTMENT 15 GM TUBE 1 APPLIC TOPICAL (14:14)
[2022-07-07 14:24] VITALS: BP 122/67; PULSE 57; RESP 18; O2SAT 100
--- NOTE | 2022-07-07 17:05 | P.OP_ITS ---
Procedure Note - Detailed Date of Procedure 07/07/22 Pre-op Diagnosis Right Carpal Tunnel Syndrome Post-op Diagnosis Same Procedure Performed Right open carpal tunnel release Surgeon Niall Benavides MD Anesthesia Local Description of Procedure The right carpal tunnel and was marked on the patient's wrist while she waited in the holding area. She was then taken to the operating room where she was placed supine on the operating table. The right upper extremity was prepped and draped in usual fashion. The tourniquet was applied was not used. The site on the palm was marked for the incision. A time-out was held and confirmed. The surgical site was infiltrated with 1% lidocaine with epinephrine. The incision was made as marked with a scalpel and dissection was carried through the subcutaneous tissue with blunt and sharp dissection. The carpal retinacular ligament was incised with a 15 blade. Under 3 point retraction the ligament was divided distally and proximally to completely release it. There was no unusual anatomy noted. The skin wound was then closed with interrupted 5 0 nylon sutur e. The usual bandage was applied and the patient was discharged from the operating room in stable condition. Estimated Blood Loss 3 Tourniquet Time 0 Drains No Packing No Pathology None sent Complications No immediate complications Condition Stable Disposition Same day
== END 2022-07-07 14:45 | disposition home or self-care (01) ==
PROVIDERS: PCP Internal Medicine; Visit Provider Plastic Surgery
PROC: (CPT 64721; principal; 2022-07-07 12:30)
DX: G56.01 Carpal tunnel syndrome, right upper limb (principal)
CPT/HCPCS: 64721; A9270

== ENCOUNTER 2022-08-03 01:26 | Day surgery (SDC) | payer OTHER, SELFPAY ==
[2022-07-26 15:16] VITALS: BMI 36.0
--- NOTE | 2022-07-26 15:17 | SUR.PREOP ---
Report to the Outpatient Waiting Room, entrance under the green pavilion located off [facility], at time _0630 on date _08/03/22 . OR Time: 729 . Time changes happen often and if your time is changed the preop area will call you the afternoon before. - You and your visitor will be asked to self-screen and do not enter if you have any COVID symptoms. - Only one visitor and NO children visitors are allowed at this time. - The patient visitor is requested to leave or wait in car when not with patient due to restrictions. - A mask is required within the hospital. Patients may have clear liquids (water, carbonated beverages, clear teas, apple juice) until 3 hours prior to surgery with a maximum of 20 ounces. - Infants may have breast milk until 4 hours before surgery, formula 6 hours prior to surgery. - Children will be allowed to drink immediately following surgery. If applicable, please bring a bottle or sippy cup to assist with drinking. Juice, water, soda, and popsicles are readily available. For infants on formula, please bring formula the day of surgery. Pacifiers are allowed. Take the following medications with a SIP of water the morning of surgery: _may take morning meds Medications to discontinue per physician ____n/a Date to take last dose__n/a Please no make-up, nail namibian, hairspray, perfume, deodorant, or body powder the day of surgery. No jewelry (including any body piercings) or valuables the day of surgery, leave them at home. Please take a shower or bath the night before, or the morning of, surgery with an antibacterial soap. Wear comfortable, loose fitting clothing. Children are encouraged to wear pajamas. - Jewelry must be removed prior to entering the operating room. Rings and piercings that are not removed may be cut off. - The hospital will not accept responsibility for valuables. - Please leave all valuables, including medications, at home the day of surgery. If you are going home after surgery, a licensed substitute bus driver must drive you home. - NO public transportation without another adult. - We recommend that an adult stay with you for 24 hours following discharge. - We also recommend that you do not drive, make important decision, drink alcoholic beverages, or take any drugs that were not prescribed by your health care provider for at least 24 hours after your discharge time. For Pediatric surgeries, we recommend two adults accompany the child home (only one inside the building at this time). Follow any additional instructions given to you from your surgeon. If you or anyone in your household have experienced Covid symptoms in the past week, please notify your surgeon or the nurse liaison at the phone number below for possible testing. Telephone instructions given to __min bowman and asked if any additional questions and then verbalized understanding. Patient advised to call surgeon office or pre surgery nurse liaison [phone] if any additional questions.
[2022-08-03 07:00] VITALS: BP 130/79; PULSE 73; RESP 18; TEMP 36.1; O2SAT 100
--- NOTE | 2022-08-03 07:10 | WPDHPUPDATE1 ---
History and Physical Update Update Date/Time: 08/03/22 07:10 History and Physical has been reviewed, including an updated exam of the patient. There are NO changes in the patient's condition. Risks, benefits, and alternatives have been discussed and questions answered. Patient agrees to proceed with procedure.
[2022-08-03] MEDS: LIDO 1%/EPINEPHRINE 1:100,000 10 ML VIAL 8 ML INFILTRATE (07:28)
[2022-08-03 07:35] VITALS: BP 118/68; PULSE 63; RESP 16; O2SAT 100
[2022-08-03 07:45] VITALS: BP 115/69; PULSE 57; RESP 16; O2SAT 99
[2022-08-03] MEDS: BACITRACIN OINTMENT 15 GM TUBE 1 APPLIC TOPICAL (07:50)
[2022-08-03 07:55] VITALS: BP 110/66; PULSE 66; RESP 16; O2SAT 100
[2022-08-03 08:03] VITALS: BP 116/79; PULSE 60; RESP 14; O2SAT 100
--- NOTE | 2022-08-03 08:07 | W.PM.PROC2 ---
Procedure Note - Detailed Date of Procedure 08/03/22 Pre-op Diagnosis Left Carpal Tunnel Syndrome Post-op Diagnosis Same Procedure Performed Left open carpal tunnel release Surgeon Niall Benavides MD Anesthesia Local Description of Procedure The left carpal tunnel site was marked on the patient in the holding area. She was taken to the operating room was placed supine operating table. A time-out was held confirmed. The left upper extremity was prepped and draped in the usual fashion. The site was remarked for the incision in this area locally infiltrated with 1% lidocaine with epinephrine. No tourniquet was utilized. Some time was allowed for hemostatic effect. The incision was made as marked and carried bluntly through the subcutaneous tissue to the palmar aponeurosis. The structure was divided with scissors. The transverse retinaculum was identified and incised with a 15. Blade. Under 3 point retraction the retinaculum was divided distally and proximally to completely release it. There was no unusual anatomy noted. The skin was closed with interrupted 5 0 nylon suture and the usual bandage applied. The patient is discharged home with instructions in wound care and follow-up. She has a prescription sent to her pharmacy for hydrocodone 5/325 6. Estimated Blood Loss 2 Tourniquet Time 0 Drains No Packing No Pathology None sent Complications No immediate complications Condition Stable Disposition Same day
== END 2022-08-03 08:16 | disposition home or self-care (01) ==
PROVIDERS: PCP Internal Medicine; Visit Provider Plastic Surgery
PROC: (CPT 64721; principal; 2022-08-03 07:30)
DX: G56.02 Carpal tunnel syndrome, left upper limb (principal)
CPT/HCPCS: 64721; A9270

== ENCOUNTER 2022-10-15 19:24 | Emergency (ER) | payer OTHER, SELFPAY ==
[2022-10-15 19:29] VITALS: BP 133/74; PULSE 79; RESP 18; TEMP 36.7; O2SAT 100
--- NOTE | 2022-10-15 20:18 | ED.GENADULT ---
HPI - General Adult General Chief complaint: Upper Respiratory Infection Stated complaint: think i have the flu Time Seen by Provider: 10/15/22 19:39 History of Present Illness HPI narrative: Patient is a 19-year-old female who presents ER with cold symptoms. Reports her children had influenza around . She reports she has been having cold symptoms for the last 2 weeks. Her last 2 days she has developed worsening symptoms of sinus congestion with loss of voice and productive cough. Still has some body aches. No fevers or chills or sweats. She has been taking Sudafed with only mild improvement. Related Data Home Medications Medication Instructions Recorded Confirmed omeprazole 20 mg capsule,delayed 20 mg PO DAILY PRN Acid Reflux 01/25/22 09/01/22 release azelastine 205.5 mcg (0.15 %) 2 spray intranasal PRN PRN 06/28/22 09/01/22 nasal spray ALLERGIES loratadine 10 mg tablet 10 mg PO PRN PRN Allergy Symptoms 06/28/22 09/01/22 Allergies Allergy/AdvReac Type Severity Reaction Status Date / Time No Known Allergies Allergy Verified 10/15/22 19:25 Review of Systems Review of Systems: All systems reviewed & are unremarkable except as noted in HPI and below Constitutional: Constitutional: Denies chills, Denies fatigue and Denies fever(s) ENT: Reports nasal congestion and Reports sore throat Comments: Ear pressure Cardiovascular: Cardiovascular: Denies chest pain, Denies rapid heart rate and Denies radiating jaw, neck or arm pain Respiratory: Respiratory: Reports cough, Denies dyspnea and Denies wheezing Gastrointestinal: Gastrointestinal: Denies abdominal pain, Denies nausea and Denies vomiting PMF Past Medical History Medical History Abdominal bloating Abdominal bloating Abdominal pain Asthma Depression Establishing care with new doctor, encounter for Tobacco abuse Upper respiratory infection Yeast infection Surgical History Surgical History H/O section 2017 H/O excision of mass excision right upper thigh lipoma and skin tag -07/02/2021 History of carpal tunnel release of both wrists (~06/2022) and July 2022 History of tonsillectomy 2020 Family History Family History Mother Family history of thyroid disease, Onset Age: 41 Asthma, Onset Age: 41 Father Hypertension Patient's father is in good health Sibling Asthma Grandparent Asthma Breast cancer Lung cancer Brain cancer Social History Social History (Updated 09/01/22 @ 13:33 by Macy Marcano) Social History: Caffeine-soda Smoking packs per day: 0.25 Smoking cigarettes per day: 5.0 Years smoked: 8 Smoking pack-years: 2.00 Smoking status: Former smoker Tobacco type: e-cigarettes/vaping Smoking end date: 10/30/19 Alcohol intake: former Drinks per week: 1 Substance use: current Substance use type: marijuana Gender identity (if verbalized by the patient): Female Spiritual care concerns: No Exam Narrative: GENERAL: Well-appearing, well-nourished, and in no acute distress. HEAD: Normocephalic, atraumatic. EYES: PERRL and EOMI. ENT: Mucous membranes moist. TMs normal bilaterally. NECK: Supple. CHEST: Clear to auscultation. No respiratory distress. HEART: Regular rate and rhythm. Normal peripheral pulses. EXTREMITIES: Normal range of motion. No edema. NEURO: Alert and oriented x3. PSYCH: Normal mood and affect. Course Vital Signs Vital signs: Vital Signs Temperature 98.0 F 10/15/22 19:29 Pulse Rate 79 10/15/22 19:29 Respiratory Rate 18 10/15/22 19:29 Blood Pressure 133/74 10/15/22 19:29 Pulse Oximetry 100 10/15/22 19:29 Temperature 98.0 F 10/15/22 19:29 Pulse Rate 79 10/15/22 19:29 Respiratory Rate 18 10/15/22 19:29 Blood Pressure 133/74 10/15/22 19:29 Pulse O
[2022-10-15 21:18] LABS: Influenza A QL RT-PCR Negative (Negative); Influenza B QL RT-PCR Negative (Negative); SARS-CoV-2 RNA PCR Positive
[2022-10-15 21:39] VITALS: BP 126/88; PULSE 68; RESP 17; O2SAT 100
== END 2022-10-15 21:40 | disposition home or self-care (01) ==
PROVIDERS: Emergency Provider Emergency Medicine; PCP Internal Medicine
DX: U07.1 COVID-19 (principal); J45.909 Unspecified asthma, uncomplicated; Z87.891 Personal history of nicotine dependence
CPT/HCPCS: 87636; 99283

== ENCOUNTER 2022-12-24 18:00 | Emergency (ER) | payer OTHER, SELFPAY ==
[2022-12-24 18:14] VITALS: BP 133/94; PULSE 65; RESP 16; TEMP 36.3; O2SAT 100
--- NOTE | 2022-12-24 18:19 | ED.URI ---
HPI - URI/Sore Throat General Chief Complaint: Upper Respiratory Infection Stated Complaint: SORE THROAT/EARACHE Time Seen by Provider: 12/24/22 18:19 Source: patient, RN notes reviewed and old records reviewed Mode of arrival: ambulatory Limitations: no limitations History of Present Illness HPI Narrative: 27-year-old female who presents to [facility] with complaints of head and chest congestion with sore throat and ear pain with headache and hoarseness increasing since Monday. Patient reports that she has not had any known fevers, has been using daily nasal spray, has taken Tessalon Perles for cough, DayQuil and Sudafed for her symptoms. MD elicited complaint: cough, sore throat, nasal congestion, sinus pain and other (headache) Pertinent past history: other (tonsillectomy ) Onset (ago): day(s) (5-6 days) Pain scale (0-10): 8 Able to tolerate fluids by mouth: Yes Exacerbating factors: swallowing Treatments prior to arrival: cold medicine and other (Tesslon Perles, nasal spray) Related Data Allergies Allergy/AdvReac Type Severity Reaction Status Date / Time ethyl alcohol Allergy Hives Verified 12/24/22 18:18 Review of Systems Review of Systems: CONSTITUTIONAL: Denies malaise, chills, sweats, or fever. EYES: Denies visual changes, redness, or discharge. ENT: Reports rhinorrhea, congestion, sinus pain,bilateralotalgia and sore throat. CARDIOVASCULAR: Denies chest pain, palpitations, or edema. RESPIRATORY: Reports cough.? Denies dyspnea. GASTROINTESTINAL: Denies abdominal pain, nausea, vomiting, diarrhea SKIN: Denies rash or itching. MUSCULOSKELETAL: Denies myalgia. NEUROLOGIC: Reports headache. All systems reviewed & are unremarkable except as noted in HPI and below PMFSH Past Medical History Medical History Abdominal bloating Abdominal bloating Abdominal pain Asthma Depression Establishing care with new doctor, encounter for Tobacco abuse Upper respiratory infection Yeast infection Surgical History Surgical History H/O section 2018 H/O excision of mass excision right upper thigh lipoma and skin tag -07/02/2021 History of carpal tunnel release of both wrists (~06/2022) and July 2022 History of tonsillectomy 2020 Family History Family History Mother Family history of thyroid disease, Onset Age: 41 Asthma, Onset Age: 41 Father Hypertension Patient's father is in good health Sibling Asthma Grandparent Asthma Breast cancer Lung cancer Brain cancer Social History Social History Social History: Caffeine-soda Smoking packs per day: 0.25 Smoking cigarettes per day: 5.0 Years smoked: 8 Smoking pack-years: 2.00 Smoking status: Former smoker Tobacco type: e-cigarettes/vaping Smoking end date: 10/30/19 Alcohol intake: former Drinks per week: 1 Substance use: current Substance use type: marijuana Living arrangements: with family Gender identity (if verbalized by the patient): Female Spiritual care concerns: No Comments At time of signature, agree with nursing past medical, surgical, social and family history. There is no relevant family history pertinent to the presenting complaint Exam Narrative: GENERAL: Well-appearing, well-nourished, and in no acute distress. HEAD: Normocephalic EYES: PERRLA, conjunctivae clear ENT: Nares clear, turbinates edematous and erythematous, clear discharge. Mucous membranes moist. TM pearly ortiz with dull light reflex bilaterally; no tragal tenderness. Oropharynx erythematous without lesions. Tonsils not present and throat without exudate, no drooling, no hoarseness, no trismus, uvula midline.post nasal drainage. NECK: Supple. No lymphadenopathy CHEST: Clear to au
== END 2022-12-24 18:40 | disposition home or self-care (01) ==
PROVIDERS: Emergency Provider Registered Nurse; PCP Internal Medicine
DX: J06.9 Acute upper respiratory infection, unspecified (principal); R05.9 Cough, unspecified; F12.90 Cannabis use, unspecified, uncomplicated; J45.909 Unspecified asthma, uncomplicated; Z87.891 Personal history of nicotine dependence
CPT/HCPCS: 87081; 87880; 99213; G0463

== ENCOUNTER 2023-02-09 09:13 | Outpatient (CLI) | payer OTHER, SELFPAY ==
--- NOTE | ~2023-02-09 | CT_ITS ---
CT of the Abdomen and Pelvis: Indication: Abdominal pain Technique: 2.5 mm axial scans were obtained through the abdomen and pelvis following intravenous adm inistration of 100 cc of Omnipaque 350. Dose reduction technique was used on this scan by utilizing a utomated exposure control and iterative reconstruction technique. The dose-length product (DLP) was 8 73.70 mGy-cm. COMPARISON: 02/05/2021 Findings: Scans through the lung bases are unremarkable. The liver, spleen, pancreas, gallbladder, adrenals and kidneys are within normal limits. No evidence of aortic aneurysm. No lymphadenopathy. No bowel obstruction or bowel wall thickening. There is no evidence to suggest acute appendicitis. Images through the pelvis were performed. Urinary bladder unremarkable. IUD in place. No adnexal mass seen. No ascites. Impression: No significant abnormalities seen. Reviewed, dictated and finalized at [facility]. Impression: No significant abnormalities seen.
== END 2023-02-09 09:14 | disposition home or self-care (01) ==
PROVIDERS: PCP Internal Medicine; Visit Provider Nurse Practitioner Family
DX: R10.9 Unspecified abdominal pain (principal)
CPT/HCPCS: 74177; Q9967

== ENCOUNTER 2023-04-21 12:24 | Outpatient (CLI) | payer OTHER, SELFPAY | END 2023-04-21 12:25 | disposition home or self-care (01) | PROVIDERS: PCP Internal Medicine; Visit Provider Nurse Practitioner | DX: M79.671 Pain in right foot (principal) | CPT/HCPCS: 73630 ==

== ENCOUNTER 2023-07-31 09:45 | Emergency (ER) | payer OTHER, SELFPAY ==
--- NOTE | ~2023-07-31 | XR_ITS ---
XR chest 2V DATE: 07/31/2023 10:14 INDICATION: Nonproductive cough for 3 weeks TECHNIQUE: PA and lateral views COMPARISON: 05/23/2022 portable AP chest FINDINGS: Normal heart size. No hilar or mediastinal enlargement. No pulmonary infiltrate or consol idation, pulmonary vascular congestion or pleural effusion or pneumothorax. IMPRESSION: Negative Reviewed, dictated and finalized at location B. IMPRESSION: Negative
--- NOTE | 2023-07-31 09:51 | ED.NAVMDI ---
HPI - Nausea/Vomiting/Diarrhea General Chief complaint: Upper Respiratory Infection Stated complaint: congestion,bodyaches Time Seen by Provider: 07/31/23 09:52 Source: patient Mode of arrival: ambulatory Limitations: no limitations History of Present Illness HPI Narrative: Sabina is a 28-year-old female patient presenting to clinic today with complaints of congestion, nonproductive cough, fatigue, lung pain, and body aches off and on x 3 weeks. She reports symptoms just began again last night. History of exercise induced asthma. She is currently vaping. Related Data Home Medications Medication Instructions Recorded Confirmed omeprazole 20 mg-sodium 1 cap PO DAILY 12/26/22 07/31/23 bicarbonate 1.1 gram capsule albuterol sulfate 90 mcg/actuation 1 puff inhalation PRN PRN 07/31/23 07/31/23 aerosol inhaler Shortness Of Breath Or Wheezing levonorgestrel 21 mcg/24 hours (8 See Rx Instructions .Route .COMPLEX 07/31/23 07/31/23 yrs) 52 mg intrauterine device (Mirena) Allergies Allergy/AdvReac Type Severity Reaction Status Date / Time prednisone AdvReac Intermediate Hypertensio Verified 07/31/23 09:52 n ethyl alcohol AdvReac Mild Hives Verified 07/31/23 09:52 Review of Systems Review of Systems: Pertinent positives per HPI. Patient denies any fever, chills, rash, headache, visual changes, dizziness, cough, shortness of breath, chest pain, palpitations, nausea, vomiting, diarrhea, constipation, abdominal pain, or any urinary issues. PMFSH Past Medical History Medical History Abdominal bloating Abdominal pain Asthma Carpal tunnel syndrome Depression Establishing care with new doctor, encounter for IBS (irritable bowel syndrome) Tobacco abuse Upper respiratory infection Yeast infection Surgical History Surgical History H/O section 2017 H/O excision of mass excision right upper thigh lipoma and skin tag -07/02/2021 History of carpal tunnel release of both wrists (~06/2022) and July 2022 History of tonsillectomy 2020 Family History Family History Mother Family history of thyroid disease, Onset Age: 41 Asthma, Onset Age: 41 Father Hypertension Patient's father is in good health Sibling Asthma Grandparent Asthma Breast cancer Lung cancer Brain cancer Social History Social History Social History: Caffeine-soda Smoking packs per day: 0.25 Smoking cigarettes per day: 5.0 Years smoked: 8 Smoking pack-years: 2.00 Smoking status: Former smoker Tobacco type: e-cigarettes/vaping Smoking end date: 10/30/19 Additional smoking assessment comments: 8 years smoking 14ppd Alcohol intake: former Drinks per week: 1 Substance use: current Substance use type: marijuana Lack of Transportation: No Lack of Food: Sometimes True Current Housing: I Have Housing Concerned About Future Housing: No Difficulty Paying Gas/Electric Bills: YES Currently Unemployed: No Education: High School Diploma/GED Difficulty w/ Childcare or Family Care: No Living arrangements: with family Gender identity (if verbalized by the patient): Female Spiritual care concerns: No Comments At the time of my signature, I reviewed and agree with the nursing past medical, surgical, social, and family history. There is no relevant family history pertinent to the patient complaint. Exam Narrative: General: Well-developed, obese, in no apparent distress Head: Normocephalic, atraumatic Eyes: Pupils equally round and reactive to light bilaterally, EOM intact, sclera and conjunctive clear, no discharge, lids normal Ears: TMs intact and clear, ear canals clear, no drainage, grossly hearing normal. Nose: Nares patent, c
[2023-07-31 09:52] VITALS: BP 124/69; PULSE 93; RESP 16; TEMP 36.6; O2SAT 99
== END 2023-07-31 10:39 | disposition home or self-care (01) ==
PROVIDERS: Emergency Provider Nurse Practitioner Family; PCP Internal Medicine
DX: J06.9 Acute upper respiratory infection, unspecified (principal); B34.9 Viral infection, unspecified; R09.82 Postnasal drip; Z87.891 Personal history of nicotine dependence; Z20.822 Contact with and (suspected) exposure to COVID-19
CPT/HCPCS: 71046; 87426; 87804; 99213; C9803; G0463

== ENCOUNTER 2023-11-04 18:35 | Emergency (ER) | payer OTHER, SELFPAY ==
--- NOTE | 2023-11-04 18:44 | ED.URI ---
HPI - URI/Sore Throat General Chief Complaint: Urogenital-Female Stated Complaint: uti symptoms Time Seen by Provider: 11/04/23 18:45 Source: patient Mode of arrival: ambulatory Limitations: no limitations History of Present Illness HPI Narrative: Sabina is a 28-year-old female patient presenting to clinic today with complaints of possible UTI that started yesterday. She reports she is having burning with urination and urinary frequency. She denies any fever chills. Denies any flank pain or abdominal pain. MD elicited complaint: sore throat and nasal congestion Related Data Home Medications Medication Instructions Recorded Confirmed methylphenidate HCl 27 mg 27 mg PO DAILY 11/04/23 11/04/23 tablet,extended release 24 hr (Concerta) Allergies Allergy/AdvReac Type Severity Reaction Status Date / Time prednisone AdvReac Intermediate Hypertensio Verified 11/04/23 18:50 n ethyl alcohol AdvReac Mild Hives Verified 11/04/23 18:50 Review of Systems Review of Systems: Pertinent positives per HPI. Patient denies any fever, chills, rash, headache, visual changes, dizziness, cough, shortness of breath, chest pain, palpitations, nausea, vomiting, diarrhea, constipation, abdominal pain, or any urinary issues. [facility] Past Medical History Medical History Abdominal bloating Abdominal pain Asthma Carpal tunnel syndrome Depression Establishing care with new doctor, encounter for IBS (irritable bowel syndrome) Tobacco abuse Upper respiratory infection Yeast infection Surgical History Surgical History H/O section 2017 H/O excision of mass excision right upper thigh lipoma and skin tag -07/02/2021 History of carpal tunnel release of both wrists (~06/2022) and July 2022 History of tonsillectomy 2020 Family History Family History Mother Family history of thyroid disease, Onset Age: 41 Asthma, Onset Age: 41 Father Hypertension Patient's father is in good health Sibling Asthma Grandparent Asthma Breast cancer Lung cancer Brain cancer Social History Social History Social History: Caffeine-soda Smoking packs per day: 0.25 Smoking cigarettes per day: 5.0 Years smoked: 8 Smoking pack-years: 2.00 Smoking status: Former smoker Tobacco type: e-cigarettes/vaping Smoking end date: 10/30/19 Additional smoking assessment comments: 8 years smoking 14ppd Alcohol intake: former Drinks per week: 1 Substance use: current Substance use type: marijuana Lack of Transportation: No Lack of Food: Sometimes True Current Housing: I Have Housing Concerned About Future Housing: No Difficulty Paying Gas/Electric Bills: YES Currently Unemployed: No Education: High School Diploma/GED Difficulty w/ Childcare or Family Care: No Living arrangements: with family Gender identity (if verbalized by the patient): Female Spiritual care concerns: No Comments At the time of my signature, I reviewed and agree with the nursing past medical, surgical, social, and family history. There is no relevant family history pertinent to the patient complaint. Exam Narrative: General: Well-developed, well nourished, in no apparent distress. Head: Normocephalic, atraumatic. Cardio: Regular rate and rhythm, s1 and s2 normal, no murmur appreciated. Resp: Clear to auscultation bilaterally, no rhonchi, rales, wheezing or rubs. Abdomen: Soft, pliable, bowel sounds present in all quadrants, mild tender to palpation over the suprapubic bladder, no organomegly, no CVAT tenderness. Course Course Emergency Course: Portions of this record may have been created with voice recognition software. Level of Care: Express Care Visit Vit
[2023-11-04 18:59] VITALS: BP 128/74; PULSE 63; RESP 18; TEMP 36.8; O2SAT 100
== END 2023-11-04 19:03 | disposition home or self-care (01) ==
PROVIDERS: Emergency Provider Nurse Practitioner Family; PCP Internal Medicine
DX: N30.01 Acute cystitis with hematuria (principal); B96.1 Klebsiella pneumoniae [K. pneumoniae] as the cause of diseases classified elsewhere; J45.909 Unspecified asthma, uncomplicated
CPT/HCPCS: 81003; 87077; 87086; 87186; 99213; G0463

== ENCOUNTER 2023-11-29 16:59 | Emergency (ER) | payer OTHER, SELFPAY ==
[2023-11-29 17:06] VITALS: BP 137/76; PULSE 75; RESP 18; TEMP 36.7; O2SAT 100
--- NOTE | 2023-11-29 17:13 | ED.URI ---
HPI - URI/Sore Throat General Chief Complaint: Upper Respiratory Infection Stated Complaint: Sore Throat, Congestion, Earache Time Seen by Provider: 11/29/23 17:13 Source: patient, RN notes reviewed and old records reviewed Mode of arrival: ambulatory Limitations: no limitations History of Present Illness HPI Narrative: 28 year female presents to [facility] with complaints of sore throat cough, and some sinus drainage sinus yesterday with ear pain no fevers or any nausea, vomiting, or diarrhea. Patient reports that boyfriend tested positive for strep on Monday and her sons both tested positive today. Patient has had tonsillectomy in past, has been taking Toshia [place] cold medication MD elicited complaint: cough and sore throat Pertinent past history: other (positive for strep exposure) Onset (ago): day(s) (day 2 of symptoms) Pain scale (0-10): 5 Able to tolerate fluids by mouth: Yes Treatments prior to arrival: other (Toshia seltzer) Related Data Home Medications Medication Instructions Recorded Confirmed methylphenidate HCl 27 mg 27 mg PO DAILY 11/04/23 11/29/23 tablet,extended release 24 hr (Concerta) levonorgestrel 21 mcg/24 hours (8 See Rx Instructions .Route .COMPLEX 11/29/23 11/29/23 yrs) 52 mg intrauterine device (Mirena) Allergies Allergy/AdvReac Type Severity Reaction Status Date / Time prednisone AdvReac Intermediate Hypertensio Verified 11/29/23 17:04 n ethyl alcohol AdvReac Mild Hives Verified 11/29/23 17:04 Review of Systems Review of Systems: CONSTITUTIONAL: Denies malaise, chills, sweats, or fever. EYES: Denies visual changes, redness, or discharge. ENT: Reports rhinorrhea, congestion,right nare burning, bilateral otalgia and positive sore throat. CARDIOVASCULAR: Denies chest pain, palpitations, or edema. RESPIRATORY: Reports some cough.? Denies dyspnea. GASTROINTESTINAL: Denies abdominal pain, nausea, vomiting, diarrhea SKIN: Denies rash or itching. MUSCULOSKELETAL: Denies myalgia. NEUROLOGIC: Denies headache. All systems reviewed & are unremarkable except as noted in HPI and below PMFSH Past Medical History Medical History Abdominal bloating Abdominal pain Asthma Carpal tunnel syndrome Depression Establishing care with new doctor, encounter for IBS (irritable bowel syndrome) Tobacco abuse Upper respiratory infection Yeast infection Surgical History Surgical History H/O section 2017 H/O excision of mass excision right upper thigh lipoma and skin tag -07/02/2021 History of carpal tunnel release of both wrists (~06/2022) and July 2022 History of tonsillectomy 2020 Family History Family History Mother Family history of thyroid disease, Onset Age: 41 Asthma, Onset Age: 41 Father Hypertension Patient's father is in good health Sibling Asthma Grandparent Asthma Breast cancer Lung cancer Brain cancer Social History Social History (Updated 11/30/23 @ 10:02 by Geneva Burnette NP) Social History: Caffeine-soda Smoking packs per day: 0.25 Smoking cigarettes per day: 5.0 Years smoked: 8 Smoking pack-years: 2.00 Smoking status: Former smoker Tobacco type: e-cigarettes/vaping Smoking end date: 10/30/19 Additional smoking assessment comments: 8 years smoking 1/4ppd Alcohol intake: former Drinks per week: 1 Substance use: current Substance use type: marijuana Lack of Transportation: No Lack of Food: Sometimes True Current Housing: I Have Housing Concerned About Future Housing: No Difficulty Paying Gas/Electric Bills: YES Currently Unemployed: No Education: High School Diploma/GED Difficulty w/ Childcare or Family Care: No Living arrangements: with family Gender identity (if verbalized by the patient): F
== END 2023-11-29 17:30 | disposition home or self-care (01) ==
PROVIDERS: Emergency Provider Registered Nurse; PCP Internal Medicine
DX: J02.9 Acute pharyngitis, unspecified (principal); F17.290 Nicotine dependence, other tobacco product, uncomplicated; F12.90 Cannabis use, unspecified, uncomplicated; J45.909 Unspecified asthma, uncomplicated
CPT/HCPCS: 87081; 87880; 99213; G0463

== ENCOUNTER 2024-06-27 18:53 | Emergency (ER) | payer SELFPAY ==
--- NOTE | ~2024-06-27 | CT_ITS ---
EXAMINATION: CT abdomen pelvis w con DATE: 06/27/2024 22:15 INDICATION: Lower abdominal pain. TECHNIQUE: Computed tomography (CT) of the abdomen and pelvis was performed with 100 mL Omnipaque 350 intravenous contrast. Automated exposure control and iterative reconstruction technique were employe d. The dose-length product was 851.20 mGy-cm. COMPARISON: CT abdomen and pelvis 02/09/2023 FINDINGS: The visualized portions of the lung bases show minimal atelectasis. No pleural effusion. Th e heart size is normal. No pericardial effusion. The liver, gallbladder, spleen, pancreas, adrenal gl ands and kidneys are normal. There is an intrauterine device in expected position. There are no dilat ed loops of bowel. The appendix is normal. There are no pathologically enlarged lymph nodes. There is an umbilical hernia containing fat. There is no free intraperitoneal fluid. There is mild chronic an terior wedging of multiple thoracic vertebral bodies. There is moderate thoracic spondylosis. IMPRESSION: 1. Umbilical hernia containing fat. Reviewed, dictated and finalized at location A.
[2024-06-27 18:57] VITALS: BP 125/85; PULSE 90; RESP 20; TEMP 36.9; O2SAT 100
--- NOTE | 2024-06-27 19:44 | ED.ABDPAIN ---
HPI - Abdominal Pain General Chief Complaint: Abdominal Pain <Jace Mcdonald MD - Last Filed: 06/27/24 21:42> Stated Complaint: abd pain <Jace Mcdonald MD - Last Filed: 06/27/24 21:42> Time Seen by Provider: 06/27/24 19:44 <Jace Mcdonald MD - Last Filed: 06/27/24 21:42> Source: patient <Jace Mcdonald MD - Last Filed: 06/27/24 21:42> Mode of arrival: ambulatory <Jace Mcdonald MD - Last Filed: 06/27/24 21:42> Limitations: no limitations <Jace Mcdonald MD - Last Filed: 06/27/24 21:42> History of Present Illness HPI narrative: 29 YEARS OLD WHITE FEMALE CAME TO THE EMERGENCY ROOM BY PRIVATE CAR WITH SIGNIFICANT OTHER COMPLAINING OF SUPRAPUBIC AND LEFT LOWER QUADRANT PAIN AFTER HAVING INTERCOURSE AROUND NOON TODAY. ASSOCIATED WITH SOME NAUSEA. SHE DENIES RADIATION OF PAIN. PATIENT IS TELLING ME THAT SHE BEEN HAVING POST INTERCOURSE SIMILAR PAIN FOR THE LAST 2 MONTHS TODAY WAS THE WORST. SHE DENIES ANY FEVER, CHILLS, VOMITING, DIARRHEA, CONSTIPATION, VAGINAL BLEEDING OR DISCHARGE OR URINARY SYMPTOMS. PATIENT DENIES ANY NEW THING ABOUT INTERCOURSE LATELY COMPARED TO THE PAST <Jace Mcdonald MD - Last Filed: 06/27/24 21:42> Related Data Home Medications: Home Medications Medication Instructions Recorded Confirmed levonorgestrel 21 mcg/24 hr (up to See Rx Instructions .Route .COMPLEX 11/29/23 01/03/24 8 years) 52 mg intrauterine device (Mirena) <Jace Mcdonald MD - Last Filed: 06/27/24 21:42> Allergies/Adverse Reactions: Allergies Allergy/AdvReac Type Severity Reaction Status Date / Time prednisone AdvReac Intermediate Hypertensio Verified 01/03/24 09:02 n ethyl alcohol AdvReac Mild Hives Verified 01/03/24 09:02 <Jace Mcdonald MD - Last Filed: 06/27/24 21:42> Review of Systems Review of Systems: All systems reviewed & are unremarkable except as noted in HPI and below <Jace Mcdonald MD - Last Filed: 06/27/24 21:42> PMFSH Past Medical History Medical History: Medical History Abdominal bloating Abdominal pain Asthma Carpal tunnel syndrome Depression Establishing care with new doctor, encounter for IBS (irritable bowel syndrome) Tobacco abuse Upper respiratory infection Yeast infection <Jace Mcdonald MD - Last Filed: 06/27/24 21:42> Surgical History Surgical History: Surgical History H/O section 2017 H/O excision of mass excision right upper thigh lipoma and skin tag -07/02/2021 History of carpal tunnel release of both wrists (~06/2022) and July 2022 History of tonsillectomy 2020 <Jace Mcdonald MD - Last Filed: 06/27/24 21:42> Family History Family History: Family History Mother Family history of thyroid disease, Onset Age: 41 Asthma, Onset Age: 41 Father Hypertension Patient's father is in good health Sibling Asthma Grandparent Asthma Breast cancer Lung cancer Brain cancer <Jace Mcdonald MD - Last Filed: 06/27/24 21:42> Social History Social History: Social History Social History: Caffeine-soda Smoking packs per day: 0.25 Smoking cigarettes per day: 5.0 Years smoked: 8 Smoking pack-years: 2.00 Smoking status: Former smoker Tobacco type: e-cigarettes/vaping Smoking end date: 10/30/19 Additional smoking assessment comments: 8 years smoking 1/4ppd Alcohol intake: former Drinks per week: 1 Substance use: current Substance use type: marijuana Lack of Transportation: No Lack of Food: Sometimes True Current Housing: I Have Housing Concerned About Future Housing: No Difficulty Paying Gas/Electric Bills: YES Currently Unemployed: No Education: High School Diploma/GED Difficulty w/ Childcare or Family Care: No Living arrange
[2024-06-27] MEDS: SODIUM CHLORIDE 0.9% IV 1,000 ML 999 ML IV CONT (20:08)
[2024-06-27] MEDS: MORPHINE SULFATE (*CRX) 4 MG/ML INJ IV PUSH (20:08)
[2024-06-27] MEDS: ONDANSETRON INJ 4 MG/2 ML VIAL IV PUSH (20:09)
[2024-06-27 20:12] LABS: Basophils Absolute Auto 0.1 K/mm3 (0.0-0.1); Basophils Percent Auto 0.7 % (0.2-1.2); Eosinophils Absolute Auto 0.1 K/mm3 (0-0.3); Eosinophils Percent Auto 1.1 % (0-4.4); Hematocrit 41.1 % (37.0-47.0); Hemoglobin 13.8 g/dL (12.0-15.0); Immature Granulocyte Absolute 0.03 K/mm3 (0.00-0.031); Immature Granulocyte Percent A 0.4 % (0-0.5); Lymphocytes Absolute Auto 2.06 K/mm3 (0.9-3.2); Lymphocytes Percent Auto 25.2 % (18.3-44.2); Mean Corpuscular HGB Conc 33.6 g/dl (32-36); Mean Corpuscular Hemoglobin 29.7 pg (26-34); Mean Corpuscular Volume 88.4 fl (80-100); Mean Platelet Volume 9.8 fl (7.4-10.4); Monocytes Absolute Auto 0.5 K/mm3 (0.1-0.6); Monocytes Percent Auto 6.4 % (2.6-8.5); Neutrophils Absolute Auto 5.4 K/mm3 (1.3-6.7); Neutrophils Percent Auto 66.2 % (45.5-73.1); Platelet Count Result 224 k/mm3 (150-375); Red Blood Count 4.65 M/mm3 (4.2-5.4); Red Cell Distribution Width 12.9 % (11.5-14.5); White Blood Count 8.2 K/mm3 (4.5-10.0)
[2024-06-27 20:15] LABS: Add Urine Microscopic? NO; Appearance Urine Clear (Clear); Bilirubin Urine Negative (Negative); Blood Urine Negative (Negative); Color Urine Yellow (Yellow); Glucose Urine UA Negative (Negative); Ketones Urine Negative (Negative); Leukocyte Esterase Ur Negative LEU/UL (Negative); Nitrate Urine Negative (Negative); Protein Urine Negative (Negative); Specific Grav Ur 1.005 (1.001-1.035); Urobilinogen Urine 0.2 mg/dL (<2.0); pH Urine 6.5 (5.0-9.0)
[2024-06-27 20:32] LABS: Alanine Aminotransferase 31 U/L (6-35); Albumin Level 3.9 g/dL (3.5-5.1); Alkaline Phosphatase 93 U/L (38-126); Anion Gap 9 mmol/L (4-12); Aspartate Amino Transferase 35 U/L (14-36); Bilirubin,Total 0.3 mg/dL (0.2-1.3); Blood Urea Nitrogen 6 mg/dL (7-17); Calcium 8.6 mg/dL (8.4-10.2); Carbon Dioxide 26 mmol/L (22-30); Chloride 105 mmol/L (98-107); Estimated CRCL calculation 115 ml/min; Estimated Glomerular Filt Rate > 60; Glucose 90 mg/dL (65-110); Lipase 52 U/L (23-300); Potassium 3.7 mmol/L (3.4-5.0); Sodium 140 mmol/L (137-145)
[2024-06-27 21:00] LABS: BEDSIDEPREGUCG Negative
[2024-06-27 22:50] VITALS: BP 109/56; PULSE 61; RESP 21; O2SAT 99
== END 2024-06-27 22:50 | disposition home or self-care (01) ==
PROVIDERS: Emergency Provider Emergency Medicine; PCP Internal Medicine
DX: R10.32 Left lower quadrant pain (principal); J45.909 Unspecified asthma, uncomplicated; K58.9 Irritable bowel syndrome, unspecified; Z97.5 Presence of (intrauterine) contraceptive device; Z87.891 Personal history of nicotine dependence; K42.9 Umbilical hernia without obstruction or gangrene
CPT/HCPCS: 36415; 74177; 80053; 81003; 81025; 83690; 85025; 96361; 96374; 96375; 99284; J2270; J2405; J7030; Q9967

== ENCOUNTER 2024-08-15 09:14 | Outpatient (CLI) | payer OTHER, SELFPAY ==
--- NOTE | 2024-08-15 11:52 | WPDPFTINT ---
PFT Procedure Performed PFT Procedure Performed Spirometry with Pre/Post Bronchodilator Plethysmography (Lung Vol) Diffusing Cap (DLCO) Flow Vol Loop PFT Interpretation Lung volumes were measured with the body plethysmography method. Lung volumes are unremarkable. Spirometry showed normal expiratory flow rates and a normal FEV1 to FVC ratio of 88%. Following administration of a bronchodilator there was no significant increase in expiratory flow rates. Lung diffusion capacity is within the normal range at 77% predicted. The flow-volume loop is unremarkable. Impression: Spirometry, lung volumes, lung diffusion capacity all within the normal range.
== END 2024-08-15 09:15 | disposition home or self-care (01) ==
LOC: ANHPFT 09:17
PROVIDERS: PCP Nurse Practitioner; Visit Provider Nurse Practitioner
DX: R06.00 Dyspnea, unspecified (principal)
CPT/HCPCS: 94060; 94726; 94729

== ENCOUNTER 2024-10-04 09:54 | Emergency (ER) | payer OTHER, SELFPAY ==
--- NOTE | 2024-10-04 10:05 | ED_ITS ---
HPI - URI/Sore Throat General Chief Complaint: Upper Respiratory Infection Stated Complaint: sore throat Time Seen by Provider: 10/04/24 10:07 Source: patient Mode of arrival: ambulatory Limitations: no limitations History of Present Illness HPI Narrative: Arpita is a 29-year-old female patient presenting to the clinic today with complaints of a sore throat since last night. She reports no known fever, chills, body aches. Has had strep exposure. MD elicited complaint: sore throat and nasal congestion Related Data Home Medications Medication Instructions Recorded Confirmed omeprazole 20 mg capsule,delayed 20 mg PO DAILY 07/04/24 10/04/24 release Allergies Allergy/AdvReac Type Severity Reaction Status Date / Time prednisone AdvReac Intermediate Hypertensio Verified 10/04/24 10:09 n ethyl alcohol AdvReac Mild Hives Verified 10/04/24 10:09 Review of Systems Review of Systems: Pertinent positives per HPI. Patient denies any fever, chills, rash, headache, visual changes, dizziness, cough, shortness of breath, chest pain, palpitations, nausea, vomiting, diarrhea, constipation, abdominal pain, or any urinary issues. [facility] Past Medical History Medical History Abdominal bloating Abdominal pain Asthma Carpal tunnel syndrome Depression Establishing care with new doctor, encounter for IBS (irritable bowel syndrome) Tobacco abuse Upper respiratory infection Yeast infection Surgical History Surgical History H/O section 2017 H/O excision of mass excision right upper thigh lipoma and skin tag -07/02/2021 History of carpal tunnel release of both wrists (~06/2022) and July 2022 History of tonsillectomy 2020 Family History Family History Mother Family history of thyroid disease, Onset Age: 41 Asthma, Onset Age: 41 Father Hypertension Patient's father is in good health Sibling Asthma Grandparent Asthma Breast cancer Lung cancer Brain cancer Social History Social History Social History: Caffeine-soda Smoking packs per day: 0.25 Smoking cigarettes per day: 5.0 Years smoked: 8 Smoking pack-years: 2.00 Smoking status: Former smoker Tobacco type: e-cigarettes/vaping Smoking end date: 10/30/19 Additional smoking assessment comments: 8 years smoking 1/4ppd Alcohol intake: former Drinks per week: 1 Substance use: current Substance use type: marijuana Lack of Transportation: No Lack of Food: Sometimes True Current Housing: I Have Housing Concerned About Future Housing: No Difficulty Paying Gas/Electric Bills: YES Currently Unemployed: No Education: High School Diploma/GED Difficulty w/ Childcare or Family Care: No Living arrangements: with family Gender identity (if verbalized by the patient): Female Spiritual care concerns: No Comments At the time of my signature, I reviewed and agree with the nursing past medical, surgical, social, and family history. There is no relevant family history pertinent to the patient complaint. Exam Narrative: General: Well-developed, well nourished, in no apparent distress Head: Normocephalic, atraumatic Eyes: Pupils equally round and reactive to light bilaterally, EOM intact, sclera and conjunctive clear, no discharge, lids normal Ears: TMs intact and clear, ear canals clear, no drainage, grossly hearing normal. Nose: Nares patent, clear discharge, no inflammation, no sinus tenderness. Mouth: Oral pharynx red without lesions or masses, good dentition, MMM. Neck: Supple, trachea midline, no enlargement of anterior or posterior cervical nodes, no thyroid masses or goiter palpable. Cardio: Regular rate and rhythm, s1 and s2 normal, no murmur appreciated. Resp: Clear to auscultation bilaterally, no rhonchi, rales, wheezing or rubs Course Course Emergency Course: Portions of this record may have been created with voice recognition software. Level of Care: Express Care Visit Vital Signs Vital signs: Vital signs reviewed MDM - URI/Sore Throat MDM Narrative Medical decision making narrative: At the time of visit patient is resting comfortably on the exam table. Patient appears to be nontoxic. Labs: Strep test was obtained and negative in the clinic today. We will send for culture Plan: I suspect patient has URI/pharyngitis. Supportive measures were discussed with the patient and they voiced understanding discharge instructions and agrees to treatment plan. Return precautions reviewed Differential Diagnosis Differential diagnosis: Likely upper respiratory infection, otitis media, sinus itis, viral infection, bronchitis, influenza, pharyngitis and other (COVID) Discharge Plan Discharge Clinical Impression: URI (upper respiratory infection) Qualifiers: URI type: unspecified URI Qualified Code(s): J06.9 - Acute upper respiratory infection, unspecified Pharyngitis Qualifiers: Pharyngitis/tonsillitis etiology: unspecified etiology Qualified Code(s): J02.9 - Acute pharyngitis, unspecified Patient Disposition: Home, Self-Care Condition: Stable Instructions: Antibiotic Form, Pharyngitis (ED), Upper Respiratory Infection (ED) Additional Instructions: Strep test was negative in the clinic today. We will send strep for culture Increase fluids and stay well hydrated Tylenol/motrin for pain/fever Flonase and OTC antihistamines as directed Vicks vapor rub to open sinuses Sinus rinses for congestion Cepacol spray, cough drops, throat lozenges, warm tea with honey/lemon, gargle salt water to soothe throat BRAT diet for diarrhea Clear liquids x 24 hours then advance as tolerated for nausea/vomiting Go to the ED if you develop a worsening in your condition- high fever not controlled by Tylenol or Motrin, dehydration, weakness, lethargy, shortness of breath, or chest pain. Follow up with your PCP in 3-5 days if symptoms persist. Prescriptions: No Action omeprazole 20 mg capsule,delayed release(DR/EC) 20 mg PO DAILY Follow-up/Referrals: Cooper Escobedo DO [Primary Care Provider] - Time of Disposition: 10:43 Quality NIHSS Nursing Documentation ED NIHSS nursing documentation: reviewed/agree
[2024-10-04 10:15] LABS: EDSTREPNEGPOS1 Negative (Negative)
[2024-10-04 11:18] VITALS: BP 118/74; PULSE 84; RESP 16; TEMP 36.6; O2SAT 100
== END 2024-10-04 10:50 | disposition home or self-care (01) ==
PROVIDERS: Emergency Provider Nurse Practitioner Family; PCP Internal Medicine
DX: J06.9 Acute upper respiratory infection, unspecified (principal); J02.9 Acute pharyngitis, unspecified; F17.290 Nicotine dependence, other tobacco product, uncomplicated; F12.90 Cannabis use, unspecified, uncomplicated; J45.909 Unspecified asthma, uncomplicated
CPT/HCPCS: 87081; 87880; 99213; G0463